=== PATIENT | male | born 1955 | race Two or more races ===

== ENCOUNTER 2019-01-03 08:52 | Outpatient (CLI) | payer OTHER | END 2019-01-03 16:56 | disposition home or self-care (01) | LOC: LAB 08:52 | DX: R07.0 Pain in throat (principal); Z51.81 Encounter for therapeutic drug level monitoring ==

== ENCOUNTER 2019-06-03 09:54 | Outpatient (CLI) | payer OTHER | END 2019-06-03 10:00 | disposition home or self-care (01) | LOC: SONOGRAMA 09:54 → MAMO-SONO 10:45 | DX: M54.12 Radiculopathy, cervical region (principal); G89.29 Other chronic pain; M54.2 Cervicalgia ==